=== PATIENT | female | born 1935 | race Caucasian/White ===

== ENCOUNTER → 2016-09-10 | Outpatient (CLI) | payer OTHER | LOC: FIMAGING 11:02 | PROVIDERS: ATTEND Family Medicine | DX: Z13.820 Encounter for screening for osteoporosis (principal); M85.80 Other specified disorders of bone density and structure, unspecified site; D75.89 Other specified diseases of blood and blood-forming organs; N28.9 Disorder of kidney and ureter, unspecified ==

== ENCOUNTER → 2018-09-08 | Outpatient (CLI) | payer OTHER | LOC: FIMAGING 10:36 | PROVIDERS: ATTEND Orthopaedic Surgery | DX: M17.11 Unilateral primary osteoarthritis, right knee (principal); M11.261 Other chondrocalcinosis, right knee ==

== ENCOUNTER 2018-09-15 10:51 | Observation (INO) | payer OTHER ==
--- NOTE | 2018-09-15 06:04 | PDHPUP ---
History & Physical Update H&P update statement: This history and physical update is based on an assessment of the patient which was completed after admission or registration (within 24 hours), but prior to the surgery/procedure. H&P update: H&P reviewed & patient examined, no change in patient's condition since H&P completed
[~2018-09-15 10:51] MED LIST: LIDOCAINE 2% 100 MG/5 ML SYR ONE; PROPOFOL/EMULSION 500 MG/50 ML BOTTLE IV ONE; ROPIVACAINE 0.2% 80 MG, EPINEPHrine 0.2 MG, KETOROLAC TROMETHAMINE 30 MG in SYRINGE 0 ML IU ONE; TRANEXAMIC ACID 3,000 MG in NS (SYRINGE) 50 ML IRR ONE; TRANEXAMIC ACID 3,000 MG/50 ML BAG IRR ONE; fentaNYL 100 MCG/2 ML INJ ONE
[2018-09-15] MEDS ORDERED: ceFAZolin 2 GM/DEXTROSE 100 ML IV ONE (11:01)
[2018-09-15] MEDS ORDERED: FAMOTIDINE 20 MG TAB PO ONE (11:01)
[2018-09-15] MEDS ORDERED: DEXAMETHASONE 4 MG/ML VIAL IVP ONE (11:01)
[2018-09-15] MEDS ORDERED: ACETAMINOPHEN 325 MG TAB PO ONE (11:01)
[2018-09-15] MEDS ORDERED: LIDOCAINE 1% 2 ML INJ ID PRN (11:02)
[2018-09-15] MEDS ORDERED: LR 1,000 ML IV ONE (11:02)
[2018-09-15] MEDS ORDERED: MIDAZOLAM 2 MG/2 ML VIAL IVP ONE (13:06)
[2018-09-15] MEDS ORDERED: MIDAZOLAM 2 MG/2 ML VIAL ONE (13:06)
--- NOTE | 2018-09-15 13:06 | PDANEPAE ---
ANE History of Present Illness right knee djd, here for R TKA ANE Past Medical History - Cardiovascular History Hx Hypertension: No Hx Arrhythmias: No Hx Chest Pain: No Hx Coronary Artery / Peripheral Vascular Disease: No Hx CHF / Valvular Disease: No Hx Palpitations: No - Pulmonary History Hx COPD: No Hx Asthma/Reactive Airway Disease: No Hx Recent Upper Respiratory Infection: No Hx Oxygen in Use at Home: No Hx Sleep Apnea: No Sleep Apnea Screening Result - Last Documented: Negative - Neurologic History Hx Cerebrovascular Accident: No Hx Seizures: No Hx Dementia: No - Endocrine History Hx Diabetes: No - Renal History Hx Renal Disorders: No - Liver History Hx Hepatic Disorders: No - Neurological & Psychiatric Hx Hx Neurological and Psychiatric Disorders: No - Cancer History Hx Cancer: No - Congenital Disorder History Hx Congenital Disorders: No - GI History Hx Gastrointestinal Disorders: No - Other Health History Other Health History: wears reading glasses. upper perm bridges x2 - Chronic Pain History Chronic Pain: Yes (right knee) - Surgical History Prior Surgeries: right torn meniscus repair ANE Review of Systems Review of Systems: - Exercise capacity METS (RN): 4 METS ANE Patient History - Allergies Allergies/Adverse Reactions: Penicillins Allergy (Verified 08/30/18 10:17) full body rash - Home Medications Home Medications: Herbals/Supplements -Info Only 1 ea PO DAILY 08/23/18 [Last Taken 2 Months Ago ~ 07/16/18] Naproxen Sodium [Aleve 220 MG (*)] 220 mg PO BID 08/23/18 [Last Taken 2 Months Ago ~07/16/18] Eagle-3 Fatty Acids [Fish Oil 1000 mg (*)] 1,000 mg PO DAILY 08/23/18 [Last Taken 2 Months Ago ~07/16/18] - NPO status NPO Since - Liquids (Date): 09/15/18 NPO Since - Liquids (Time): 08:00 NPO Since - Solids (Date): 09/14/18 NPO Since - Solids (Time): 20:30 - Smoking Hx Smoking Status: Never smoked - Family Anes Hx Family Hx Anesthesia Complications: none ANE Labs/Vital Signs - Vital Signs Blood Pressure: 126/66 Heart Rate: 68 Respiratory Rate: 18 O2 Sat (%): 97 Height: 162.56 cm Weight: 53.524 kg ANE Physical Exam - Airway Neck exam: decreased ROM Mallampati Score: Class 2 Mouth exam: normal dental/mouth exam - Pulmonary Pulmonary: no respiratory distress, no rales or rhonchi - Cardiovascular Cardiovascular: regular rate and rhythym, no murmur, rub, or gallop - ASA Status ASA Status: II ANE Anesthesia Plan Anesthesia Plan: GA with mask, spinal Regional Anesthesia: single shot NB Total IV Anesthesia: Yes
[2018-09-15] MEDS ORDERED: PROMETHAZINE HCL 25 MG SUPPR PR PRN (13:42)
[2018-09-15] MEDS ORDERED: POLYETHYLENE GLYCOL 3350 17 GM PKT PO PRN (13:42)
[2018-09-15] MEDS ORDERED: METOCLOPRAMIDE 10 MG/2 ML VIAL IVP PRN (13:42)
[2018-09-15] MEDS ORDERED: ONDANSETRON 4 MG/2 ML VIAL IVP PRN (13:42)
[2018-09-15] MEDS ORDERED: TEMAZEPAM 15 MG CAP PO PRN (13:42)
[2018-09-15] MEDS ORDERED: ONDANSETRON DISINTEGRATING 4 MG TAB PO PRN (13:42)
[2018-09-15] MEDS ORDERED: MAGNESIUM HYDROXIDE 30 ML UDCUP PO PRN (13:42)
[2018-09-15] MEDS ORDERED: diphenhydrAMINE 25 MG CAP PO PRN (13:42)
[2018-09-15] MEDS ORDERED: DIPHENOXYLATE/ATROPINE LOMOTIL 1 TAB PO PRN (13:42)
[2018-09-15] MEDS ORDERED: CYCLOBENZAPRINE 10 MG TAB PO PRN (13:42)
[2018-09-15] MEDS ORDERED: PROMETHAZINE HCL 25 MG/ML INJ IVP PRN (13:42)
[2018-09-15] MEDS ORDERED: LACTULOSE 20 GM/30 ML UDCUP PO PRN (13:42)
[2018-09-15] MEDS ORDERED: BISACODYL 10 MG SUPP PR PRN (13:42)
[2018-09-15] MEDS ORDERED: VANCOMYCIN 500 MG/10 ML VIAL IV ONE (13:43)
[2018-09-15] MEDS ORDERED: LR 1,000 ML IV SCH (14:00)
[2018-09-15] MEDS ORDERED: NALOXONE HCL 0.4 MG/ML INJ IVP PRN (14:02)
[2018-09-15] MEDS ORDERED: DIAZEPAM 10 MG/2 ML SYR IVP PRN (14:02)
[2018-09-15] MEDS ORDERED: MEPERIDINE 25 MG/0.5 ML AMP IVP PRN (14:02)
[2018-09-15] MEDS ORDERED: fentaNYL 100 MCG/2 ML INJ IVP PRN (14:02)
[2018-09-15] MEDS ORDERED: PROPOFOL 200 MG/20 ML VIAL ONE (14:25)
--- NOTE | 2018-09-15 14:55 | POSTOPPROG ---
Post Op Note Date of Operation: 09/15/18 Surgeon: Oksana Cedeno Senior Net Developer Architect: Claudia PARSI Anesthesiologist: Dr. Tonia Scott Anesthesia: Spinal, Other (Specify) (adductor canal block) Pre-op Diagnosis: right knee OA Post-op Diagnosis: same Indication: right knee pain Procedure: RTKA, robot assisted Findings: severe OA of right knee Inf/Abcess present in the surg proc area at time of surgery?: No EBL: 50-100
--- NOTE | 2018-09-15 15:11 | POSTANESTH ---
Post Anesthetic Evaluation Cardiovascular Status: Normal, Stable Respiratory Status: Normal, Stable Level of Consciousness/Mental Status: Can Participate in Eval, Mildly Sleepy, Arousable Pain Control: Adequate, Prn Tx Ordered Nausea/Vomiting Control: Adequate, Prn Tx Ordered Complications Possibly Related to Anesthesia: None Noted
--- NOTE | 2018-09-15 16:13 | SOAPPROG ---
SOAP Progress Note Assessment/Plan: Assessment: s/p right TKA, JUAN assist - procedure earlier today with Dr. Cedeno Doing well Plan: Begin d/c planning - likely home tomorrow, will have support from her and her daughter Continue VTE ppx- aspirin 81 mg BID x 4 weeks, WILMAR hose x 2 weeks, SCDs in hospital Continue oral pain medication - oxycodone, Tylenol, Celebrex Continue PT efforts WBAT, ROM as tolerated but limit flexion to 90 degrees until 5-7 days post-op. Follow up at [facility] [place] with Claudia Cullen PA-C, on 10/07/18 at 9:30 am Subjective: Patient states she is doing really well, right knee pain is minimal at this time secondary to the spinal anesthesia and nerve block. She denies SOB, CP, fever, chills. She hopes to go home tomorrow and will have the support of her and daughter. Objective: Vital Signs Temp Pulse Resp BP Pulse Ox 36.5 C 62 16 152/69 H 88 L 09/15/18 16:07 09/15/18 16:07 09/15/18 16:07 09/15/18 16:07 09/15/18 16:07 09/14/18 09/15/18 09/16/18 05:59 05:59 05:59 Intake Total 650 Output Total 50 Balance 600 Patient resting comfortably in bed, no acute distress. RLE: Knee wound dressings clean, dry and intact. Lower leg compartments are soft and nontender. Thigh high WILMAR hose and SCDs are in place. Negative Homans sign bilaterally. Patient can actively DF and PF her right foot and great toe against resistance. Grossly NVI distally. ICD10 Worksheet Patient Problems: Problems Problem Status Onset Unilateral primary osteoarthritis, right knee Acute
[2018-09-15] MEDS: oxyCODONE IR 5 MG TAB PO PRN ×4 (17:11→23:00)
[2018-09-15] MEDS: SENNOSIDES/DOCUSATE SODIUM TAB PO SCH (20:29)
[2018-09-15] MEDS: ASPIRIN 81 MG CHEWABLE TAB PO SCH (20:29)
[2018-09-15] MEDS: FAMOTIDINE 20 MG TAB PO SCH (20:29)
[2018-09-15] MEDS: ACETAMINOPHEN 325 MG TAB PO SCH (22:22)
[2018-09-15] MEDS: ceFAZolin 2 GM/DEXTROSE 100 ML IV SCH (22:23)
[2018-09-16] MEDS: ACETAMINOPHEN 325 MG TAB PO SCH ×2 (03:23→08:32)
[2018-09-16] MEDS: ceFAZolin 2 GM/DEXTROSE 100 ML IV SCH (05:29)
[2018-09-16 07:19] VITALS: BP 91/58
[2018-09-16] MEDS: ASPIRIN 81 MG CHEWABLE TAB PO SCH (08:32)
[2018-09-16] MEDS: SENNOSIDES/DOCUSATE SODIUM TAB PO SCH (08:32)
[2018-09-16] MEDS: FAMOTIDINE 20 MG TAB PO SCH (08:32)
--- NOTE | 2018-09-16 10:00 | ASMTLACE ---
LACE Length of stay for Answers: 1 day current admission Acuity / Level of Answers: No Care: Did the patient have an inpatient admission? Comorbidities - select Answers: Opioid dependence all that apply / Chronic pain # of Emergency department Answers: 0 visits in the last 6 months Score: 5 Date Signed: 09/16/2018 09:59 AM Electronically Signed By:KAMERON Vela
--- NOTE | 2018-09-16 11:40 | SOAPPROG ---
SOAP Progress Note Assessment/Plan: Assessment: s/p right TKA, JUAN assist with Dr. Cedeno - POD 1 Doing better than expected Plan: Begin d/c planning - home today, will have support from her and her daughter Continue VTE ppx- aspirin 81 mg BID x 4 weeks, WILMAR hose x 2 weeks Continue oral pain medication - oxycodone, Tylenol, Celebrex Continue PT efforts WBAT, ROM as tolerated but limit flexion to 90 degrees until 5-7 days post-op. She will need clearance from PT prior to d/c [place] [facility] [place] Claudia Cullen PA-C, on 10/07/18 at 9:30 am Subjective: Patient states she is doing very well, pain is being well controlled with the oral pain medication. She feels well enough to go home today. She denies SOB, CP , fever, chills, nausea, vomiting. Objective: Vital Signs Temp Pulse Resp BP Pulse Ox 36.9 C 79 17 91/58 L 97 09/16/18 07:17 09/16/18 07:17 09/16/18 07:17 09/16/18 07:17 09/16/18 07:17 Laboratory Results 09/16/18 04:12 09/16/18 05:07 09/15/18 09/16/18 09/17/18 05:59 05:59 05:59 Intake Total 1600 Output Total 1750 Balance -150 Patient resting comfortably in bed, no acute distress. RLE: Knee wound dressings are clean, dry and intact. Lower leg compartments are soft and nontender. Negative Homans sign bilaterally. Patient can actively DF and PF her right foot and great toe against resistance. Grossly NVI distally. ICD10 Worksheet Patient Problems: Problems Problem Status Onset Unilateral primary osteoarthritis, right knee Acute
--- NOTE | 2018-09-16 11:46 | PDDCSUM ---
Discharge Summary Discharge Summary: ADMISSION DIAGNOSIS: Right knee severe degenerative arthritis DISCHARGE DIAGNOSIS: Right knee severe degenerative arthritis OPERATION PERFORMED: September 15, 2018, Right total knee arthroplasty, [place]de robot assisted POSTOPERATIVE COMPLICATIONS: None CONDITION ON DISCHARGE: Improved HPI: The patient is a 83 year old female who has end-stage arthritis of her right knee. Clinical and radiographic features are consistent with this. Patient has failed attempts at conservative management, therefore, recommended operative right total knee replacement. DESCRIPTION OF HOSPITAL COURSE: The patient was admitted to the hospital on the morning of surgery and underwent a right total knee arthroplasty, Clyde robot assisted. Postoperatively, patient was treated with multimodal DVT prophylaxis, including aspirin 81 mg BID, SCDs and WILMAR hose. Patient was seen by PT and made good progress with ambulation and stairs. On the first post-operative day the patients H&H was 9.7/30.7. Patient was able to void spontaneously. At the time of discharge, patient was afebrile, wound was clean and dry. Patient is walking with a walker. DISPOSITION: The patient is discharged home and will have the support of her and daughter. She will have outpatient PT in the next 1-2 weeks. Patient may progress to full weightbearing on the right lower extremity as tolerated. WILMAR stockings for 2 weeks during the day time. Aspirin 81 mg BID for 4 weeks. Patient has prescriptions for Celebrex, oxycodone for pain control. The patient will be seen by Dr. Newsome office in approximately 3 weeks. If there are any problems, patient is to call Dr. Newsome office.
--- NOTE | 2018-09-18 12:20 | GOP ---
[f rep st] OPERATIVE REPORT DATE OF OPERATION: 09/15/2018 SURGEON: Noble Cedeno MD EASTER BUNNY: Jazzmine Cullen P.A.-C. ANESTHESIA: Spinal. PREOPERATIVE DIAGNOSIS: Right knee osteoarthritis. POSTOPERATIVE DIAGNOSIS: Right knee osteoarthritis. PROCEDURE PERFORMED: Right total knee arthroplasty with computer navigation, robotic assist. FINDINGS: ESTIMATED BLOOD LOSS: 30 cc. INDICATIONS: The patient is an 83-year-old female with severe and progressive pain and deformity of the right knee unresponsive to conservative care. The risks and benefits of surgical intervention we re explained in detail. DESCRIPTION OF PROCEDURE: The patient was brought to the operative room and placed on the table in t he supine position. Spinal anesthesia was induced without difficulty. A pneumatic tourniquet was appl ied about the right proximal thigh, and the leg was prepped and draped in a sterile fashion. The leg richards was applied. After exsanguination by elevation the tourniquet was inflated to 250 mmHg. Incision was made anterior medial from the tibial tuberosity to a point 2 cm proximal to the superior pole of the patella. Medial parapatellar arthrotomy was carried out from the superior pole of the pa tella and posteriorly in line with the fibers of the Type II VMO. The medial collateral ligament was elevated and the infrapatellar fat pad was resected. Pathology: Severe medial and patellofemoral osteoarthritis. The patella was everted and the articular surface was excised. A 35 mm patellar button was placed. Attention was turned first to the distal aspect of the femur. After exposure of the femur, 2 half pi ns were placed for fixation of the femoral array. In a similar fashion, 2 pins were placed anteromed ial on the tibia for fixation of the tibial array. External land marking and registration of the hip center was performed without difficulty. Internal femoral and tibial registration was carried out w ithout difficulty and the femoral and tibial checkpoints were placed and verified for accuracy. Attention was turned to the femur. The foot print for the size 5 femoral component was cut with the saw using the [employer] robotic system and verified for accuracy against the CT based plan. In a similar f ashion, the saw was used to cut the footprint for the size 5 tibial component using the [employer] system an d verified for accuracy against the CT based plan. The tibial articular surface was excised without d ifficulty, followed by the intercondylar box cut. The knee was extended and the remnants of the medial and lateral meniscus were excised. The posterior capsule was injected with ropivacaine, epinephrine and Toradol. A size 5 mm tibial tray was positio arsenio. Trial reduction was then carried out. There was excellent range of motion, alignment, and stabil ity using the 5 x 9 mm polyethylene. All trials were then removed. The joint was thoroughly irrigated and carefully dried. The cemented co mponents were implanted. The permanent 5 x 9 mm polyethylene was placed without difficulty. The tourniquet was deflated and all bleeders were coagulated. The wound was thoroughly irrigated and closed using interrupted sutures of 2-0 Vicryl for the joint capsule. The subcu was closed with 3-0 V icryl and the skin with 4-0 Monocryl. Dermabond and Steri-Strips were applied followed by a compress mariann dressing. The patient was then moved from the operating room to the recovery room in good conditi on, having tolerated the procedure well. /[id number]/MODL
== END 2018-09-16 11:35 | disposition home or self-care (01) ==
LOC: F3N 10:51
PROVIDERS: ADMIT Orthopaedic Surgery; ATTEND Orthopaedic Surgery
DX: M17.11 Unilateral primary osteoarthritis, right knee (principal)
CPT/HCPCS: 27447; 73560; 88311; 97161; C1713; C1776; G0378; J0171; J0690; J1100; J1885; J2001; J2250; J2270; J2704; J2795; J3010; J3370